=== PATIENT | female | born 1930 ===

== ENCOUNTER 2021-08-12 12:16 | Inpatient (IN) ==
[2021-08-12 13:15] LABS: Immature Retic Fraction 0.66
[2021-08-12 13:23] LABS: Activated Partial Thrombo Time 28.5 seconds (26.0-38.0); INR 1.07 (0.86-1.15)
[2021-08-12 13:24] LABS: Albumin 3.6 g/dL (3.2-5.2); Calcium 8.9 mg/dL (8.6-10.3); Potassium 4.3 mmol/L (3.5-5.0); Total Bilirubin 0.3 mg/dL (0.2-1.0)
[2021-08-12 13:30] LABS: Globulin 3.5 g/dL (2-4); Total Protein 7.1 g/dL (6.4-8.9); eGFR CKD-EPI 48.6 (>60)
[2021-08-12 13:40] LABS: ABS Lymphocytes 1.3 10^3/ul (1.0-4.8); ABS Monocytes 0.5 10^3/ul (0-0.8); ABS Neutrophils 9.4 10^3/ul (1.5-7.7); Corrected Retic Count 2.2 % (0.5-1.5); Eosinophil % 0.1 %; Hematocrit 26 % (35-47); Hematocrit for Retic CNT 26 % (35-47); Hemoglobin 8.6 g/dL (12.0-16.0); Lymphocyte % 11.9 %; Mean Corpuscular HGB Conc 33 g/dL (31-36); Mean Corpuscular Hemoglobin 31 pg (27-31); Mean Corpuscular Volume 92 fL (80-97); Nucleated Red Blood Cells % 0.1; Red Cell Distribution Width 13 % (10-15); White Blood Count 11.2 10^3/uL (3.5-10.8)
[2021-08-12 14:29] LABS: Mean Platelet Volume 11.7 fL (7.4-10.4); Platelet Count 2 10^3/uL (150-450)
[2021-08-12] MEDS ORDERED: Al Hydrox/Mg Hydrox/Simet LIQ 30 ML UDC PO PRN (15:29)
[2021-08-12] MEDS ORDERED: Immune Globulin IV Order (CPOE ENTRY PROTOCOL) IV SCH (16:00)
[2021-08-12] MEDS ORDERED: [UNRECOGNIZED DRUG - OTHER] IV ONE ×2 (20:30→21:00)
[2021-08-12] MEDS ORDERED: PRIVIGEN IV ONE ×2 (20:30→21:00)
[2021-08-12] MEDS ORDERED: IMMUNE GLOB IV ONE ×2 (20:30→21:00)
[2021-08-13 06:22] LABS: ABS Lymphocytes 0.5 10^3/ul (1.0-4.8); ABS Monocytes 0.3 10^3/ul (0-0.8); ABS Neutrophils 7.5 10^3/ul (1.5-7.7); Hematocrit 24 % (35-47); Lymphocyte % 6.1 %; Mean Corpuscular HGB Conc 34 g/dL (31-36); Mean Corpuscular Hemoglobin 32 pg (27-31); Mean Corpuscular Volume 95 fL (80-97); Nucleated Red Blood Cells % 0.1; Platelet Count 5 10^3/uL (150-450); Red Blood Count 2.52 10^6 /uL (3.70-4.87); Red Cell Distribution Width 14 % (10-15); White Blood Count 8.3 10^3/uL (3.5-10.8)
[2021-08-13 06:32] LABS: Calcium 8.1 mg/dL (8.6-10.3); eGFR CKD-EPI 62.8 (>60)
[2021-08-13 06:50] LABS: Ferritin 170.7 ng/mL (11-307)
[2021-08-13 16:05] LABS: Kappa Free Light Chain 5.39 mg/dL
[2021-08-13] MEDS: Magnesium Hydroxide LIQ 30 ML UDC PO PRN (16:56)
[2021-08-14 06:02] LABS: ABS Lymphocytes 1.2 10^3/ul (1.0-4.8); ABS Monocytes 0.3 10^3/ul (0-0.8); ABS Neutrophils 5.7 10^3/ul (1.5-7.7); Hematocrit 21 % (35-47); Hemoglobin 7.3 g/dL (12.0-16.0); Lymphocyte % 16.6 %; Mean Corpuscular HGB Conc 35 g/dL (31-36); Mean Corpuscular Hemoglobin 32 pg (27-31); Mean Corpuscular Volume 93 fL (80-97); Mean Platelet Volume 9.4 fL (7.4-10.4); Platelet Count 13 10^3/uL (150-450); Red Blood Count 2.29 10^6 /uL (3.70-4.87); Red Cell Distribution Width 13 % (10-15); White Blood Count 7.2 10^3/uL (3.5-10.8)
[2021-08-14 06:31] LABS: Calcium 8.4 mg/dL (8.6-10.3); Potassium 3.8 mmol/L (3.5-5.0); eGFR CKD-EPI 69.3 (>60)
[2021-08-14] MEDS: NS 0.9% 1000 ml BAG 1,000 ML IV SCH (09:41)
[2021-08-14 13:01] LABS: Albumin 2.9 g/dL (3.4-4.7); Albumin/Globulin Ratio 0.75; Gamma Globulin 1.2 g/dL (0.6-1.6); Total Protein(PEP) 6.7 g/dL (6.3 - 7.9)
[2021-08-14] MEDS: Iron Sucrose 200 MG in NS 0.9% 100 ml BAG 100 ML IVPB SCH (16:58)
[2021-08-15 05:50] LABS: ABS Lymphocytes 1.3 10^3/ul (1.0-4.8); ABS Monocytes 0.3 10^3/ul (0-0.8); ABS Neutrophils 5.7 10^3/ul (1.5-7.7); Hematocrit 25 % (35-47); Hemoglobin 8.6 g/dL (12.0-16.0); Lymphocyte % 17.4 %; Mean Corpuscular HGB Conc 35 g/dL (31-36); Mean Corpuscular Hemoglobin 32 pg (27-31); Mean Corpuscular Volume 93 fL (80-97); Mean Platelet Volume 9.8 fL (7.4-10.4); Nucleated Red Blood Cells % 0.1; Platelet Count 15 10^3/uL (150-450); Red Blood Count 2.65 10^6 /uL (3.70-4.87); Red Cell Distribution Width 14 % (10-15); White Blood Count 7.2 10^3/uL (3.5-10.8)
[2021-08-15 05:58] LABS: Calcium 8.6 mg/dL (8.6-10.3); Potassium 3.8 mmol/L (3.5-5.0); eGFR CKD-EPI 73.7 (>60)
[2021-08-15] MEDS: NS 0.9% 1000 ml BAG 1,000 ML IV SCH (17:12)
[2021-08-16 06:57] LABS: Hematocrit 25 % (35-47); Hemoglobin 8.7 g/dL (12.0-16.0); Mean Corpuscular HGB Conc 35 g/dL (31-36); Mean Corpuscular Hemoglobin 32 pg (27-31); Mean Corpuscular Volume 92 fL (80-97); Platelet Count 26 10^3/uL (150-450); Red Cell Distribution Width 14 % (10-15); White Blood Count 9.5 10^3/uL (3.5-10.8)
[2021-08-16 07:48] LABS: Calcium 8.6 mg/dL (8.6-10.3); Potassium 3.8 mmol/L (3.5-5.0); eGFR CKD-EPI 65.4 (>60)
[2021-08-16 08:18] LABS: ABS Lymphocytes 1.8 10^3/ul (1.0-4.8); ABS Monocytes 0.4 10^3/ul (0-0.8); ABS Neutrophils 7.3 10^3/ul (1.5-7.7); Lymphocyte % 18.9 %; Nucleated Red Blood Cells % 0.3
[2021-08-16] MEDS: Iron Sucrose 200 MG in NS 0.9% 100 ml BAG 100 ML IVPB SCH (09:37)
[2021-08-16] MEDS: Magnesium Hydroxide LIQ 30 ML UDC PO PRN (10:54)
[2021-08-16] MEDS: oxyCODONE SR 20 mg TAB PO SCH (21:45)
[2021-08-17] MEDS: NS 0.9% 1000 ml BAG 1,000 ML IV SCH (04:48)
[2021-08-17] MEDS: oxyCODONE SR 20 mg TAB PO SCH ×2 (08:07→19:40)
[2021-08-17 08:32] LABS: Hematocrit 25 % (35-47); Hemoglobin 8.7 g/dL (12.0-16.0); Mean Corpuscular HGB Conc 34 g/dL (31-36); Mean Corpuscular Hemoglobin 32 pg (27-31); Mean Corpuscular Volume 94 fL (80-97); Mean Platelet Volume 10.9 fL (7.4-10.4); Platelet Count 27 10^3/uL (150-450); Red Cell Distribution Width 14 % (10-15); White Blood Count 9.9 10^3/uL (3.5-10.8)
[2021-08-17 08:38] LABS: Calcium 8.5 mg/dL (8.6-10.3); Potassium 3.9 mmol/L (3.5-5.0); eGFR CKD-EPI 65.4 (>60)
[2021-08-17 09:07] LABS: ABS Lymphocytes 1.7 10^3/ul (1.0-4.8); ABS Monocytes 0.5 10^3/ul (0-0.8); ABS Neutrophils 7.7 10^3/ul (1.5-7.7); ABS Nucleated RBC 0.1 10^3/ul; Lymphocyte % 17.5 %; Nucleated Red Blood Cells % 0.7
[2021-08-18 06:47] LABS: Calcium 8.3 mg/dL (8.6-10.3); eGFR CKD-EPI 57.3 (>60)
[2021-08-18 07:08] LABS: ABS Lymphocytes 2.1 10^3/ul (1.0-4.8); ABS Monocytes 0.4 10^3/ul (0-0.8); ABS Neutrophils 7.7 10^3/ul (1.5-7.7); Hematocrit 23 % (35-47); Hemoglobin 7.8 g/dL (12.0-16.0); Lymphocyte % 20.2 %; Mean Corpuscular HGB Conc 34 g/dL (31-36); Mean Corpuscular Hemoglobin 32 pg (27-31); Mean Corpuscular Volume 94 fL (80-97); Mean Platelet Volume 9.7 fL (7.4-10.4); Nucleated Red Blood Cells % 0.2; Platelet Count 19 10^3/uL (150-450); Red Blood Count 2.41 10^6 /uL (3.70-4.87); Red Cell Distribution Width 14 % (10-15); White Blood Count 10.2 10^3/uL (3.5-10.8)
[2021-08-18] MEDS: oxyCODONE SR 20 mg TAB PO SCH ×2 (09:23→19:36)
[2021-08-18] MEDS: NS 0.9% 1000 ml BAG 1,000 ML IV SCH (11:07)
[2021-08-19 06:44] LABS: Hematocrit 23 % (35-47); Hemoglobin 7.8 g/dL (12.0-16.0); Mean Corpuscular HGB Conc 34 g/dL (31-36); Mean Corpuscular Hemoglobin 33 pg (27-31); Mean Corpuscular Volume 96 fL (80-97); Red Cell Distribution Width 15 % (10-15); White Blood Count 7.9 10^3/uL (3.5-10.8)
[2021-08-19 07:02] LABS: Calcium 8.1 mg/dL (8.6-10.3); Potassium 4.2 mmol/L (3.5-5.0); eGFR CKD-EPI 60.3 (>60)
[2021-08-19 07:05] LABS: ABS Lymphocytes 1.7 10^3/ul (1.0-4.8); ABS Monocytes 0.4 10^3/ul (0-0.8); ABS Neutrophils 5.8 10^3/ul (1.5-7.7); ABS Nucleated RBC 0.1 10^3/ul; Lymphocyte % 21.2 %; Mean Platelet Volume 9.8 fL (7.4-10.4); Nucleated Red Blood Cells % 0.7; Platelet Count 17 10^3/uL (150-450)
[2021-08-19] MEDS: oxyCODONE SR 20 mg TAB PO SCH ×2 (10:29→20:17)
[2021-08-19] MEDS: NS 0.9% 1000 ml BAG 1,000 ML IV SCH (20:17)
[2021-08-20 05:46] LABS: ABS Basophils 0.1 10^3/ul (0-0.2); ABS Lymphocytes 2.5 10^3/ul (1.0-4.8); ABS Monocytes 0.5 10^3/ul (0-0.8); ABS Neutrophils 5.4 10^3/ul (1.5-7.7); Eosinophil % 0.1 %; Hematocrit 24 % (35-47); Hemoglobin 8.1 g/dL (12.0-16.0); Lymphocyte % 30.1 %; Mean Corpuscular HGB Conc 33 g/dL (31-36); Mean Corpuscular Hemoglobin 32 pg (27-31); Mean Corpuscular Volume 95 fL (80-97); Mean Platelet Volume 9.8 fL (7.4-10.4); Nucleated Red Blood Cells % 0.3; Platelet Count 17 10^3/uL (150-450); Red Blood Count 2.56 10^6 /uL (3.70-4.87); Red Cell Distribution Width 15 % (10-15); White Blood Count 8.5 10^3/uL (3.5-10.8)
[2021-08-20] MEDS: oxyCODONE SR 20 mg TAB PO SCH ×2 (08:13→21:06)
[2021-08-20] MEDS: Magnesium Hydroxide LIQ 30 ML UDC PO PRN (08:19)
[2021-08-20] MEDS: Iron Sucrose 200 MG in NS 0.9% 100 ml BAG 100 ML IVPB SCH (09:49)
[2021-08-21] MEDS: NS 0.9% 1000 ml BAG 1,000 ML IV SCH (01:47)
[2021-08-21 05:43] LABS: Hematocrit 26 % (35-47); Hemoglobin 8.7 g/dL (12.0-16.0); Mean Corpuscular HGB Conc 33 g/dL (31-36); Mean Corpuscular Hemoglobin 32 pg (27-31); Mean Corpuscular Volume 96 fL (80-97); Mean Platelet Volume 11.2 fL (7.4-10.4); Platelet Count 32 10^3/uL (150-450); Red Blood Count 2.74 10^6 /uL (3.70-4.87); Red Cell Distribution Width 16 % (10-15); White Blood Count 9.3 10^3/uL (3.5-10.8)
[2021-08-21 09:06] LABS: RBC Morphology Normal (Normal)
[2021-08-21] MEDS: Iron Sucrose 200 MG in NS 0.9% 100 ml BAG 100 ML IVPB SCH (09:06)
[2021-08-21] MEDS: oxyCODONE SR 20 mg TAB PO SCH (09:06)
[2021-08-21 09:07] LABS: ABS Lymphocytes 2.9 10^3/ul (1.0-4.8); ABS Monocytes 0.7 10^3/ul (0-0.8); ABS Neutrophils 5.7 10^3/ul (1.5-7.7); ABS Nucleated RBC 0.1 10^3/ul; Eosinophil % 0.3 %; Lymphocyte % 31.2 %; Nucleated Red Blood Cells % 0.8
[2021-08-21 10:29] LABS: Rapid COVID-19 Molecular Undetected (Undetected)
[2021-08-21 11:33] VITALS: BP 162/64
[2021-08-22 14:53] LABS: Hepatitis B Surface Antigen Nonreactive (Nonreactive)
[2021-08-22 15:10] LABS: Hepatitis B Surface Ab Immune (Immune)
[2021-08-22 15:11] LABS: Hepatitis C Antibody Negative (Negative)
[2021-08-29 08:58] LABS: BM Result Summary Normal
== END 2021-08-21 12:05 | DRG 813 ==
LOC: CHOA 12:16 → MED 15:51
PROVIDERS: ADMIT Internal Medicine Medical Oncology; ATTEND Internal Medicine Medical Oncology